=== PATIENT | female | born 1970 | race Caucasian/White ===

== ENCOUNTER 2025-09-01 23:28 | Emergency (ER) | payer MEDICAID, OTHER ==
[~2025-09-01] VITALS: Ht 160 cm; Wt 70.3 kg
[2025-09-02 00:09] VITALS: BP 118/73
[2025-09-02] MEDS ORDERED: HYDROMORPHONE 1 MG/1 ML DISP.SYRIN ONE (00:50)
[2025-09-02] MEDS ORDERED: ONDANSETRON ODT 4 MG TAB.RAPDIS ONE (00:50)
[2025-09-02] MEDS: ONDANSETRON ODT 4 MG TAB.RAPDIS SL ONE (00:56)
[2025-09-02] MEDS: HYDROMORPHONE 1 MG/1 ML DISP.SYRIN IM ONE (00:56)
[2025-09-02] MEDS ORDERED: ONDA-243 PO (01:06)
[2025-09-02] MEDS ORDERED: HYDR-3980 PO (01:06)
[2025-09-02 01:57] VITALS: BP 115/70; O2SAT 97
== END 2025-09-02 01:30 | disposition home or self-care (01) ==
LOC: ER 23:36
DX: S93.401A Sprain of unspecified ligament of right ankle, initial encounter (principal); I51.9 Heart disease, unspecified
CPT/HCPCS: 29515; 73610; 73630; 96372; 99284; J1171; A4606; A4663; Q0162